=== PATIENT | male | born 1945 | race Caucasian/White ===

== ENCOUNTER 2021-12-13 10:16 | Emergency (ER) | payer MEDICARE, BC ==
[~2021-12-13] VITALS: Ht 175.3 cm; Wt 95.5 kg
[2021-12-13 10:25] VITALS: TEMP 98
[2021-12-13 11:57] VITALS: BP 168/80; PULSE 62
== END 2021-12-13 12:21 | disposition home or self-care (01) ==
LOC: COL.ER 10:16
DX: R33.9 Retention of urine, unspecified (principal)

== ENCOUNTER 2021-12-16 12:36 | Day surgery (SDC) | payer MEDICARE, BC ==
[~2021-12-16] VITALS: Ht 175.3 cm; Wt 97.3 kg
[2021-12-16] MEDS ORDERED: NORVASC2.5 MG (13:54)
[2021-12-16] MEDS ORDERED: [UNRECOGNIZED DRUG - OTHER] (13:55)
[2021-12-16] MEDS ORDERED: PRINIVIL20 MG (13:56)
[2021-12-16] MEDS ORDERED: MOBIC15 MG (13:56)
[2021-12-16] MEDS ORDERED: MEGARED OMEGA-1 EAC3 (13:56)
[2021-12-16] MEDS ORDERED: MIRALAX PA17 GM/Dose (13:57)
[2021-12-16] MEDS ORDERED: TOPROL XL100 MG (13:57)
[2021-12-16] MEDS ORDERED: NEXIUM 20MG20 MG (13:58)
[2021-12-16] MEDS ORDERED: DAZIDOX20 MG (13:59)
[2021-12-16] MEDS ORDERED: PRESERVISION1 SGL (14:00)
[2021-12-16] MEDS ORDERED: VITAMIN D 400400 IU (14:02)
--- NOTE | 2021-12-16 14:13 | NUR ---
1413 ADMITTED AMBULATORY TO ROOM 1. ALERT/ORIENTED. PATIENT EXPRESSES PRESENCE OF SIGNIFICANT DISCOMFORT SECONDARY TO URINARY URGENCY. CONSENT SIGNED. VITAL SIGNS OBTAINED. RESP CLEAR, SPONTANEOUS. LUNG SOUNDS CLEAR.
[2021-12-16 14:45] VITALS: BP 164/83; PULSE 62; TEMP 97.4
[2021-12-16] MEDS ORDERED: MEGARED ADVANC1 EAC1 (15:12)
[2021-12-16 15:43] VITALS: BP 81/41; PULSE 48; TEMP 97.7
--- NOTE | 2021-12-16 15:43 | NUR ---
PATIENT ARRIVES FROM OR TO ROOM 1. DROWSY, AROUSES TO VERBAL STIMULI. O2 AT 8L/FACE MASK. VAMP STRAP IRONER AT BEDSIDE. CARTER CATHETER PATENT PINK URINE RETURN. IN ROOM.
[2021-12-16 15:58] VITALS: BP 93/46; PULSE 50
[2021-12-16 16:13] VITALS: BP 107/48; PULSE 50
--- NOTE | 2021-12-16 16:13 | NUR ---
AWAKE, ALERT. DENIES PAIN. TOLERATES PO JUICE AND WATER WITHOUT NAUSEA.
[2021-12-16 16:28] VITALS: BP 117/63; PULSE 52
[2021-12-16 16:43] VITALS: BP 118/60; PULSE 56
--- NOTE | 2021-12-16 16:43 | NUR ---
DISCHARGE INSTRUCTIONS REVIEWED WITH PATIENT AND . COPY OF INSTRUCTIONS AND EDUCATIONAL MATERIALS PROVIDED.
--- NOTE | 2021-12-16 16:45 | NUR ---
250 ML OF LIGHT PINK URINE EMPTIED FROM CARTER CATHETER BAG. PATIENT THEN SITS ON EDGE OF BED DRESSES SELF WITH MINIMAL ASSISTANCE FROM .
== END 2021-12-16 17:00 | disposition home or self-care (01) ==
LOC: SDCO 12:36
DX: N32.0 Bladder-neck obstruction (principal); Z87.891 Personal history of nicotine dependence
CPT/HCPCS: A4215; C1769; J0690; J1100; J1885; J2405; J2704; J3010; J3301; J7120